=== PATIENT | male | born 1955 | race Caucasian/White ===

== ENCOUNTER 2020-02-18 14:16 | Observation (INO) ==
[2020-02-18 15:28] LABS: Basophils # 0.1 K/mcL (0.0-0.2); Basophils % 0.6 %; Eosinophils # 0.3 K/mcL (0.0-0.6); Hematocrit 34.7 % (37.5-50.1); Hemoglobin 11.3 g/dL (12.9-16.9); Immature Granulocytes % 0.4 % (0-4); Lymphocytes # 1.1 K/mcL (0.6-4.6); Lymphocytes % 14.7 %; Mean Corpuscular HGB Conc 32.6 g/dL (31.6-35.5); Mean Corpuscular Hemoglobin 30.2 pg (28.0-33.3); Mean Corpuscular Volume 92.8 fL (83.0-100.0); Mean Platelet Volume 10.6 fL (9.4-12.4); Monocytes # 0.6 K/mcL (0.0-1.3); Monocytes % 7.2 %; Neutrophils # 5.6 K/mcL (1.6-8.9); Platelet Count 307 K/mcL (140-400); Red Blood Count 3.74 M/mcL (4.19-5.50); Red Cell Distribution Width 13.1 % (11.5-14.5); Segmented Neutrophils % 73.1 %; White Blood Count 7.7 K/mcL (4.3-11.1)
[2020-02-18 15:48] LABS: BUN/Creatinine Ratio 22 (6-26); Blood Urea Nitrogen 18 mg/dL (8-23); Calcium 9.6 mg/dL (8.6-10.3); Carbon Dioxide 28 mEq/L (23-29); Chloride 99 mEq/L (98-107); Glucose 119 mg/dL (70-105); Osmolality,Calculated 283 (280-300); Potassium 4.2 mEq/L (3.5-5.1); Sodium 135 mEq/L (136-145); eGFR For African Americans > 60 (> 60); eGFR For Non-African Americans > 60 (> 60)
[2020-02-18] MEDS ORDERED: Ondansetron 4 MG/2 ML VIAL IVP PRN (16:27)
[2020-02-18] MEDS ORDERED: Acetaminophen 325 MG TABLET PO PRN (16:27)
[2020-02-18] MEDS ORDERED: Naloxone 0.4 MG/ML INJ IVP PRN (16:27)
[2020-02-18] MEDS ORDERED: Melatonin 3 MG TABLET PO ONE (21:49)
[2020-02-19] MEDS: *HR* Enoxaparin 40 MG/0.4 ML SYRINGE SQ SCH (05:21)
[2020-02-19] MEDS: *HR* HYDROcodone/Acet 5/325 mg TABLET PO PRN ×2 (05:24→22:18)
[2020-02-19] MEDS ORDERED: polyethylene glycoL 3350 17 GM POWD.PACK PO PRN (10:17)
[2020-02-19] MEDS ORDERED: Gabapentin 300 MG CAPSULE PO PRN (10:17)
[2020-02-19] MEDS: Finasteride 5 MG TABLET PO SCH (11:31)
[2020-02-19] MEDS: carvediloL 25 MG TABLET PO SCH ×2 (11:31→16:37)
[2020-02-19] MEDS: Isosorbide MONOnitrate (24 HR) 30 MG TAB.ER.24H PO SCH (11:31)
[2020-02-19] MEDS: Aspirin Enteric Coated 81 MG Tablet PO SCH (11:32)
[2020-02-20] MEDS: *HR* Enoxaparin 40 MG/0.4 ML SYRINGE SQ SCH (05:09)
[2020-02-20] MEDS: Furosemide 20 MG TABLET PO SCH (10:04)
[2020-02-20] MEDS: Aspirin Enteric Coated 81 MG Tablet PO SCH (10:04)
[2020-02-20] MEDS: Finasteride 5 MG TABLET PO SCH (10:04)
[2020-02-20] MEDS: Multivit/Ca/Min/Fe/FA 1 TAB TABLET PO SCH (10:04)
[2020-02-20] MEDS: Fenofibrate 54 MG TABLET PO SCH (10:05)
[2020-02-20] MEDS: carvediloL 25 MG TABLET PO SCH ×2 (10:05→18:52)
[2020-02-20] MEDS: Isosorbide MONOnitrate (24 HR) 30 MG TAB.ER.24H PO SCH (10:05)
[2020-02-20] MEDS: *HR* HYDROcodone/Acet 5/325 mg TABLET PO PRN ×2 (10:13→20:25)
[2020-02-21] MEDS: *HR* Enoxaparin 40 MG/0.4 ML SYRINGE SQ SCH (05:18)
[2020-02-21] MEDS: Isosorbide MONOnitrate (24 HR) 30 MG TAB.ER.24H PO SCH (08:59)
[2020-02-21] MEDS: Fenofibrate 54 MG TABLET PO SCH (08:59)
[2020-02-21] MEDS: Furosemide 20 MG TABLET PO SCH (08:59)
[2020-02-21] MEDS: Multivit/Ca/Min/Fe/FA 1 TAB TABLET PO SCH (08:59)
[2020-02-21] MEDS: Aspirin Enteric Coated 81 MG Tablet PO SCH (08:59)
[2020-02-21] MEDS: carvediloL 25 MG TABLET PO SCH ×2 (08:59→18:43)
[2020-02-21] MEDS: *HR* HYDROcodone/Acet 5/325 mg TABLET PO PRN (09:00)
[2020-02-21] MEDS: Finasteride 5 MG TABLET PO SCH (09:00)
[2020-02-22] MEDS: *HR* Enoxaparin 40 MG/0.4 ML SYRINGE SQ SCH (05:20)
[2020-02-22 06:49] LABS: Basophils # 0.1 K/mcL (0.0-0.2); Basophils % 0.7 %; Eosinophils # 0.4 K/mcL (0.0-0.6); Eosinophils % 4.6 %; Hematocrit 37.5 % (37.5-50.1); Hemoglobin 12.2 g/dL (12.9-16.9); Immature Granulocytes % 0.7 % (0-4); Lymphocytes # 1.4 K/mcL (0.6-4.6); Lymphocytes % 14.6 %; Mean Corpuscular HGB Conc 32.5 g/dL (31.6-35.5); Mean Corpuscular Hemoglobin 30.1 pg (28.0-33.3); Mean Corpuscular Volume 92.6 fL (83.0-100.0); Mean Platelet Volume 10.7 fL (9.4-12.4); Monocytes # 0.5 K/mcL (0.0-1.3); Monocytes % 5.3 %; Neutrophils # 7.1 K/mcL (1.6-8.9); Platelet Count 341 K/mcL (140-400); Red Blood Count 4.05 M/mcL (4.19-5.50); Red Cell Distribution Width 13.4 % (11.5-14.5); Segmented Neutrophils % 74.1 %; White Blood Count 9.6 K/mcL (4.3-11.1)
[2020-02-22] MEDS: Multivit/Ca/Min/Fe/FA 1 TAB TABLET PO SCH (07:07)
[2020-02-22] MEDS: Isosorbide MONOnitrate (24 HR) 30 MG TAB.ER.24H PO SCH (07:07)
[2020-02-22] MEDS: Aspirin Enteric Coated 81 MG Tablet PO SCH (07:07)
[2020-02-22] MEDS: Fenofibrate 54 MG TABLET PO SCH (07:07)
[2020-02-22] MEDS: Furosemide 20 MG TABLET PO SCH (07:07)
[2020-02-22] MEDS: Finasteride 5 MG TABLET PO SCH (07:07)
[2020-02-22 07:08] LABS: BUN/Creatinine Ratio 26 (6-26); Blood Urea Nitrogen 22 mg/dL (8-23); Calcium 9.6 mg/dL (8.6-10.3); Carbon Dioxide 28 mEq/L (23-29); Chloride 100 mEq/L (98-107); Glucose 115 mg/dL (70-105); Osmolality,Calculated 288 (280-300); Potassium 3.6 mEq/L (3.5-5.1); Sodium 137 mEq/L (136-145); eGFR For African Americans > 60 (> 60); eGFR For Non-African Americans > 60 (> 60)
[2020-02-22] MEDS: carvediloL 25 MG TABLET PO SCH ×2 (07:08→16:36)
[2020-02-23] MEDS: *HR* Enoxaparin 40 MG/0.4 ML SYRINGE SQ SCH (05:47)
[2020-02-23] MEDS: Finasteride 5 MG TABLET PO SCH (07:23)
[2020-02-23] MEDS: Fenofibrate 54 MG TABLET PO SCH (07:24)
[2020-02-23] MEDS: carvediloL 25 MG TABLET PO SCH (07:24)
[2020-02-23] MEDS: Furosemide 20 MG TABLET PO SCH (07:25)
[2020-02-23] MEDS: Multivit/Ca/Min/Fe/FA 1 TAB TABLET PO SCH (07:25)
[2020-02-23] MEDS: Aspirin Enteric Coated 81 MG Tablet PO SCH (07:25)
[2020-02-23 10:05] VITALS: BP 124/78
[2020-02-23] MEDS: Isosorbide MONOnitrate (24 HR) 30 MG TAB.ER.24H PO SCH (10:07)
== END 2020-02-23 14:30 ==
LOC: 3ANU 14:16 → EMEROOARM 14:16 → SUATTDRO 16:36 → 3ANU 17:23
PROVIDERS: ADMIT Internal Medicine; ATTEND Family Medicine